=== PATIENT | female | born 1950 | race Caucasian/White ===

== ENCOUNTER → 2024-06-21 12:52 | Outpatient (REF) | payer MEDICARE, OTHER, SELFPAY | LOC: RCS 12:52 | PROVIDERS: ATTENDING PHYSICIAN Student in an Organized Health Care Education/Training Program | DX: R93.1 Abnormal findings on diagnostic imaging of heart and coronary circulation (principal) | CPT/HCPCS: 93017 ==

== ENCOUNTER → 2024-07-04 12:58 | Outpatient (REF) | payer MEDICARE, OTHER, SELFPAY | LOC: RCS 12:58 | PROVIDERS: ATTENDING PHYSICIAN Student in an Organized Health Care Education/Training Program | DX: R93.1 Abnormal findings on diagnostic imaging of heart and coronary circulation (principal); R94.39 Abnormal result of other cardiovascular function study | CPT/HCPCS: 93306 ==

== ENCOUNTER → 2024-07-19 09:53 | Outpatient (REF) | payer MEDICARE, OTHER, SELFPAY | LOC: RAD 09:53 | PROVIDERS: ATTENDING PHYSICIAN Student in an Organized Health Care Education/Training Program | DX: R93.1 Abnormal findings on diagnostic imaging of heart and coronary circulation (principal); R94.39 Abnormal result of other cardiovascular function study | CPT/HCPCS: 75574; Q9967 ==

== ENCOUNTER 2024-08-02 06:06 | Day surgery (SDC) | payer MEDICARE, OTHER, SELFPAY ==
[2024-07-26 11:37] VITALS: BMI 25.8
[2024-08-02] VITALS (7 sets, daily range): BP systolic 116–141; BP diastolic 45–84; BMI 25.1
[2024-08-02] MEDS: NSS 1000 IV (09:03)
--- NOTE | 2024-08-02 16:13 | ITS.CL.CATH ---
[facility] - Catheterization
Cardiac Catheterization
Procedure Report:
CARDIAC CATHETERIZATION REPORT
Date of Procedure: 08/02/24
Referring: Dr. Sylvain Lopez MD, PhD
Indication: positive cardiac stress test, CAD-RADS 4a disease on coronary CTA with severely elevated calcium score
PROCEDURE:
1. Right heart catheterization.
2. Left heart catheterization.
3. Coronary angiography.
ACCESS:
6 [place] right radial artery.
5 [place] right antecubital vein
CATHETERS:
1. 5 [place] balloon wedge
2. 6 [place] JR4
3. 6 [place] AL1 (JL 3.5 with poor fit due to upward takeoff)
HEMODYNAMIC DATA
LV 131/11 (EDP 25) mmHg
AO 131/48 (mean 77) mmHg
RA 9 mmHg
RV 32/5 (EDP 14) mmHg
PA 32/13 (mean 23) mmHg
PCWP 16 mmHg
CO/CI 4.0/2.5
SVR 1364 dsc*-5
PVR 1.8 Wood units
CORONARY ANGIOGRAPHY
Dominance: right
LM: large and normal
LAD: large vessel giving rise to severe small caliber diagonal branches and multiple septal perforators. There are serial 30% stenoses in the proximal-mid LAD and luminal irregularities otherwise.
LCx: large vessel giving rise to a large OM1 and large branching OM2. There are trivial luminal irregularities.
RCA: large vessel giving rise to a moderate caliber RPDA and moderate caliber RPL branch. There is a 80% stenosis in the mid-RPDA with TIMI3 flow and otherwise mild luminal irregularities.
Radiation dose (mGy): 453.8
DAP (cm2.Gy): 28.95
Fluoroscopy time (minutes): 12.2
CONCLUSIONS:
1. Single vessel obstructive coronary artery disease with 80% stenosis of the RPDA. There is significant calcification in the left coronary system but with positive remodeling and no obstructive coronary disease.
2. Mildly elevated bi-ventricular filling pressures, normal cardiac output, and no aortic stenosis.
RECOMMENDATIONS:
1. Expectant management after cardiac catheterization via right radial approach.
2. Aggressive secondary prevention of CAD with goal LDL<55.
Copy to: Dr. Priscila Arreguin MD (PCP)
Signed: Dr. Sylvain Lopez MD, PhD
== END 2024-08-02 11:30 | disposition home or self-care (01) ==
LOC: CATH 06:06
PROVIDERS: ATTENDING PHYSICIAN Student in an Organized Health Care Education/Training Program
DX: I25.10 Atherosclerotic heart disease of native coronary artery without angina pectoris (principal); R94.39 Abnormal result of other cardiovascular function study; R07.9 Chest pain, unspecified; R68.84 Jaw pain; I10 Essential (primary) hypertension; Z87.891 Personal history of nicotine dependence; Z82.49 Family history of ischemic heart disease and other diseases of the circulatory system; Z79.82 Long term (current) use of aspirin
CPT/HCPCS: 93460; C1894; Q9967

== ENCOUNTER → 2024-09-17 07:57 | Outpatient (REF) | payer MEDICARE, OTHER, SELFPAY ==
[2024-09-17 08:59] LABS: ALT (SGPT) 19 U/L (0-35); AST (SGOT) 28 U/L (14-36); HDL Cholesterol 98 mg/dl; LDL Cholesterol, Calculated 34 mg/dl; Total Cholesterol 144 mg/dl (50-199); Triglyceride 60 mg/dl (10-149); Very Low Density Lipoprotein 12 mg/dl (0-30)
== END ==
LOC: REG 07:57
PROVIDERS: ATTENDING PHYSICIAN Nurse Practitioner
DX: I25.10 Atherosclerotic heart disease of native coronary artery without angina pectoris (principal)
CPT/HCPCS: 36415; 80061; 84450; 84460

== ENCOUNTER → 2025-08-21 07:02 | Outpatient (REF) | payer MEDICARE, OTHER, SELFPAY ==
[2025-08-21 07:47] LABS: INR 1.12; PT 14.7 Sec (11.4-14.6)
[2025-08-21 07:48] LABS: APTT 32.8 Sec (23.4-35.0)
[2025-08-21 07:51] LABS: Hematocrit 21.5 % (37.0-47.0); Hemoglobin 7.0 g/dL (12.0-16.0); Mean Corp Hgb Conc. 32.6 g/dL (33.0-37.0); Mean Corpuscular Volume 99.5 fL (81.0-99.0); Nucleated Red Blood Cells % 0 %; Platelet Count 229 10^3/uL (130-400); Red Cell Dist. Width 23.3 % (11.5-14.5)
[2025-08-21 08:08] LABS: Blood Urea Nitrogen 27 mg/dl (7-17); Calcium 9.4 mg/dl (8.4-10.2); Carbon Dioxide 27 mmol/L (22-30); Chloride 105 mmol/L (98-107); Glucose 110 mg/dl (70-99); Potassium 3.9 mmol/L (3.5-5.1); Sodium 135 mmol/L (135-145); eGFR > 60.00
[2025-08-21 08:24] LABS: Anisocytosis 2+; Normal RBC Morphology No; Ovalocytes 2+
[2025-08-21 08:25] LABS: Tear Drop Red Blood Cells 1+
[2025-08-21 08:26] LABS: Schistocytes Occasional
[2025-08-21 08:28] LABS: Spherocytes 1+
== END ==
LOC: REG 07:02
PROVIDERS: ATTENDING PHYSICIAN Plastic Surgery; FAMILY PHYSICIAN Internal Medicine
DX: Z01.812 Encounter for preprocedural laboratory examination (principal); I34.0 Nonrheumatic mitral (valve) insufficiency; I35.1 Nonrheumatic aortic (valve) insufficiency; Z79.01 Long term (current) use of anticoagulants
CPT/HCPCS: 36415; 80048; 85025; 85610; 85730

== ENCOUNTER 2025-09-03 08:21 | Outpatient (RCR) | payer MEDICARE, OTHER, SELFPAY ==
[2025-09-03] VITALS (7 sets, daily range): BP systolic 127–163; BP diastolic 45–50
== END 2025-09-08 23:59 | disposition home or self-care (01) ==
LOC: OID 08:21
PROVIDERS: ATTENDING PHYSICIAN Plastic Surgery; FAMILY PHYSICIAN Internal Medicine
DX: D58.0 Hereditary spherocytosis (principal); D63.8 Anemia in other chronic diseases classified elsewhere
CPT/HCPCS: 36415; 36430; 86850; 86900; 86901; 86920; P9016

== ENCOUNTER → 2025-09-18 11:05 | Outpatient (REF) | payer MEDICARE, OTHER, SELFPAY | LOC: RCS 11:05 | PROVIDERS: ATTENDING PHYSICIAN Student in an Organized Health Care Education/Training Program; FAMILY PHYSICIAN Internal Medicine | DX: I35.1 Nonrheumatic aortic (valve) insufficiency (principal) | CPT/HCPCS: 93306 ==

== ENCOUNTER → 2025-09-21 08:23 | Outpatient (REF) | payer MEDICARE, OTHER, SELFPAY ==
[2025-09-21 10:12] LABS: ALT (SGPT) 28 U/L (0-35); AST (SGOT) 35 U/L (14-36); Albumin 4.4 g/dl (3.5-5.0); Alkaline Phosphatase 101 U/L (38-126); Blood Urea Nitrogen 30 mg/dl (7-17); Calcium 9.6 mg/dl (8.4-10.2); Carbon Dioxide 26 mmol/L (22-30); Chloride 106 mmol/L (98-107); Glucose 111 mg/dl (70-99); HDL Cholesterol 96 mg/dl; LDL Cholesterol, Calculated 25 mg/dl; Potassium 4.6 mmol/L (3.5-5.1); Sodium 138 mmol/L (135-145); Total Protein 7.0 g/dl (6.3-8.2); Very Low Density Lipoprotein 13 mg/dl (0-30); eGFR > 60.00
== END ==
LOC: REG 08:23
PROVIDERS: ATTENDING PHYSICIAN Student in an Organized Health Care Education/Training Program; FAMILY PHYSICIAN Internal Medicine
DX: I25.10 Atherosclerotic heart disease of native coronary artery without angina pectoris (principal)
CPT/HCPCS: 36415; 80053; 80061